=== PATIENT | female | born 2000 | race Caucasian/White ===

== ENCOUNTER 2020-12-09 15:25 | Emergency (ER) | payer OTHER, SELFPAY ==
--- NOTE | ~2020-12-09 | XR_ITS ---
EXAMINATION: XR FINGER, RIGHT CLINICAL INFORMATION: Fifth finger trauma. COMPARISON: None TECHNIQUE: Three views of the right fifth digit. FINDINGS: The bones and soft tissues are normal. No fracture. Alignment is anatomic. Joint spaces are maintained. XR/XR finger RT min 2V IMPRESSION: No fracture.
[2020-12-09 17:38] VITALS: BP 164/82; PULSE 76; RESP 18; TEMP 36.6; O2SAT 99; BMI 30.2
--- NOTE | 2020-12-09 18:48 | ED_ITS ---
HPI - Extremity Problem General Chief complaint: Extremity Injury, Upper Stated complaint: work inj Time Seen by Provider: 12/09/20 18:48 Source: patient Mode of arrival: ambulatory Limitations: no limitations History of Present Illness HPI Narrative: Patient is a 20-year-old female with no significant past medical history who says she pinched her right cyst digit between 2 bricks at work at approximately 15:00 today. She has full range of movement of the finger but states that is painful. She did not use ice or take any ibuprofen. Related Data Allergies Allergy/AdvReac Type Severity Reaction Status Date / Time aspirin Allergy Unknown Verified 12/09/20 17:42 Review of Systems Review of Systems: Yes all other systems are reviewed and are negative [facility] Past Medical History Medical History Hypertension Social History Social History Advance Directives: No Advance Directives Information Provided: No Patient : No Physical Exam Vital Signs: Vital Signs: Last Vital Signs Temp 97.9 F 12/09/20 17:38 Pulse 76 12/09/20 17:38 Resp 18 12/09/20 17:38 BP 164/82 H 12/09/20 17:38 Pulse Ox 99 12/09/20 17:38 Body Mass Index 30.2 Const: General: cooperative, healthy appearing, comfortable, no acute distress and well developed Orientation/consciousness: patient oriented x3 Limitations: no limitations HENMT: Head: Yes normal to inspection Eyes: General: appearance normal, both eyes and all related structures Neck: Neck: Yes normal visual inspection and Yes full ROM Resp: Effort & Inspection: normal respiratory effort and able to speak in complete sentences Skin: General skin exam: no rashes or lesions noted Neuro: General: patient oriented x3 Extrem: Other: Right hand 5th digit, full range of motion, neurovascularly intact, no lacerations, ecchymosis or signs of infection noted. Slight swelling at the base of the finger. General: Yes normal to inspection MDM - Extremity (Nontraumatic) Imaging Data finger x-ray: Attestation: I personally reviewed and interpreted this imaging study as follows: Radiologist's impression: Close Finger X-Ray (Signed) Josue Carter - 12/09/20 Launch?Image [address] [address] XRay Report Signed Patient: Rani Myers MR#: [id number] : 2000 Acct:[id number] Age/Sex: 20 / F ADM Date: 12/09/20 Loc: .ED Attending Dr: Ordering Physician: Generic ED Physician Date of Service: 12/09/20 Procedure(s): XR finger RT min 2V Accession Number(s): [id number] cc: Generic ED Physician~ EXAMINATION: XR FINGER, RIGHT CLINICAL INFORMATION: Fifth finger trauma.? COMPARISON: None? TECHNIQUE: Three views of the right fifth digit. FINDINGS: The bones and soft tissues are normal. No fracture. Alignment is anatomic. Joint spaces are maintained.? XR/XR finger RT min 2V IMPRESSION: No fracture. Dictated By: JOSUE CARTER MD Signed By: <Electronically signed by JOSUE CARTER MD in OV> Discharge Plan Discharge Clinical Impression: Finger sprain Qualifiers: Encounter type: initial encounter Finger: little finger Sprain of finger site: metacarpophalangeal joint Laterality: right Qualified Code(s): S63.656A - Sprain of metacarpophalangeal joint of right little finger, initial encounter Patient Disposition: Home, Self-Care Instructions: Finger Sprain (ED) Referrals: Physician,None [Primary Care Provider] - 2 days
--- NOTE | 2020-12-09 19:02 | ED_ITS ---
HPI - Extremity Problem General Chief complaint: Extremity Injury, Upper Stated complaint: work inj Time Seen by Provider: 12/09/20 18:48 Source: patient Mode of arrival: ambulatory Limitations: no limitations History of Present Illness HPI Narrative: 20-year-old female came in for evaluation of right 5th finger injury at work. 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 Patient is a right-handed. Related Data Allergies Allergy/AdvReac Type Severity Reaction Status Date / Time aspirin Allergy Unknown Verified 12/09/20 17:42 Review of Systems Review of Systems: All other systems are reviewed and are negative Constitutional: Reports as per HPI and Reports no additional constitutional complaints Eyes: Reports as per HPI and Reports no additional eye complaints Reports system reviewed and no additional complaints, except as documented Cardiovascular: Reports as per HPI and Reports no additional cardiovascular co mplaints Respiratory: Reports as per HPI and Reports no additional respiratory complaints Gastrointestinal: Reports as per HPI and Reports no additional gastrointestinal complaints Genitourinary: Reports no additional female genitourinary complaints Musculoskeletal: Reports no additional musculoskeletal complaints Skin/Breast: Reports system reviewed and no additional complaints, except as docu Psychiatric: Reports no additional psychiatric complaints Endocrine: Reports no additional endocrine complaints Hematologic/Lymphatic: Reports no additional hematologic/lymphatic complaints Allergic/Immunologic: Reports no additional allergic/immunologic complaints Reports system reviewed and no additional complaints, except as documented and Reports Abnormal speech present [facility] Past Medical History Medical History Hypertension Social History Social History Advance Directives: No Advance Directives Information Provided: No Patient : No Physical Exam Vital Signs: Vital Signs: Last Vital Signs Temp 97.9 F 12/09/20 17:38 Pulse 76 12/09/20 17:38 Resp 18 12/09/20 17:38 BP 164/82 H 12/09/20 17:38 Pulse Ox 99 12/09/20 17:38 Body Mass Index 30.2 Vital signs have been reviewed as appeared to be correct. Blood pressure elevated. Heart rate normal. Respiration rate normal. Temperature normal. Oxygen saturation normal. Appearance: Alert. Oriented X3. No acute distress. Head: Normal external exam. Normocephalic. Atraumatic. No Rothman signs noted. No raccoon eyes noted Eyes: PERRLA. EOMI. Conjunctiva and sclera normal. Eyelids normal. ENT: TM's Normal. Pharynx normal. Uvula midline. Moist mucous membranes. No trismus noted. No drooling noted. No muffled voice noted. Neck: Normal inspection. Neck supple. FROM. No adenopathy. Thyroid Normal. No meningeal signs. No neck mass noted. CVS: Normal heart rate and rhythm. Heart sound normal. No murmurs noted. Pulses normal throughout. Respiratory: No respiratory distress. Painless inspiration. Breath sounds normal. No wheezes/rales/rhonchi noted. Chest nontender. No accessory muscle usage noted or decreased air movement noted. Abdomen: Soft and nontender. Bowel sounds normal in all 4 quadrants. No distention noted. No organomegaly noted. No visible injury noted. Back: No CVA tenderness. Full range of motion noted. Skin: Skin warm and dry. Normal skin color. Normal skin turgor. No rashes/lesions/lacerations noted. Extremities: Right hand exam: Right 5th finger with no deformity, full range of motion, no laceration, neurovascularly intact. Neuro: Oriented X 3. Cranial nerve exam: II-XII are grossly intact No motor deficit. No sensory deficit. Reflexes normal. MDM - Extremity (Nontraumatic) Imaging Data finger x-ray: Radiologist's impression: The bones and soft tissues are normal. No fracture. Alignment is anatomic. Joint spaces are maintained.? Discharge Plan Discharge Clinical Impression: Finger sprain Qualifiers: Encounter type: initial encounter Finger: little finger Sprain of finger site: metacarpophalangeal joint Laterality: right Qualified Code(s): S63.656A - Sprain of metacarpophalangeal joint of right little finger, initial encounter Patient Disposition: Home, Self-Care Instructions: Finger Sprain (ED) Referrals: Physician,None [Primary Care Provider] - 2 days
== END 2020-12-09 19:52 | disposition home or self-care (01) ==
PROVIDERS: Emergency Provider Emergency Medicine
DX: S63.656A Sprain of metacarpophalangeal joint of right little finger, initial encounter (principal); M79.641 Pain in right hand; X50.3XXA Overexertion from repetitive movements, initial encounter; Y93.9 Activity, unspecified; Y92.9 Unspecified place or not applicable; Y99.0 Civilian activity done for income or pay
CPT/HCPCS: 73140; 99283